=== PATIENT | male | born 1980 | race Caucasian/White ===

== ENCOUNTER 2016-12-04 10:44 | Inpatient (IN) | payer BC, OTHER ==
[2016-12-04 11:02] VITALS: BMI 24.0
--- NOTE | 2016-12-04 11:26 | HP ---
COWS - Scale Resting Pulse: 1= [place] 81-100 Sweatin= Chills/Flushing Restless Observation: 1= Difficult to Sit Still Pupil Size: 0= Normal to Room Light Bone or Joint Aches: 1= Mild Discomfort Runny Nose/ Eye Tearin= Runny Nose/Eyes GI Upset > 30mins: 1= Stomach Cramp Tremor Observation: 1= Tremor [place], Not Seen Yawning Observation: 1= 1-2x During Session Anxiety or Irritability: 1=Feels Anxious/Irritable Goose Flesh Skin: 0=Smooth Skin COWS Score: 10 Admission ROS BHS - HPI Chief Complaint: I want to stop using, it is destroying my life Allergies/Adverse Reactions: Allergies Allergy/AdvReac Type Severity Reaction Status Date / Time No Known Allergies Allergy Verified 12/04/16 11:15 History of Present Illness: 36 yo gentleman here for detox from opiates. Previously here for detox 03/01/16 - went to outpatient but relapsed about six months ago. Denies drug related seizures. Exam Limitations: Clinical Condition - Ebola screening Have you traveled outside of the country in the last 21 days: No Have you had contact with anyone from an Ebola affected area: No Have you been sick,other than usual withdrawal symptoms: No Do you have a fever: No - Review of Systems Constitutional: Chills, Loss of Appetite, Malaise, Changes in sleep, Unintentional Wgt. Loss EENT: reports: Blurred Vision, Nose Congestion Respiratory: reports: SOB with Exertion Cardiac: reports: Chest Tightness GI: reports: Poor Appetite : reports: No Symptoms Reported Musculoskeletal: reports: Back Pain, Muscle Pain Integumentary: reports: No Symptoms Reported Neuro: reports: Headache Endocrine: reports: No Symptoms Reported Hematology: reports: No Symptoms Reported Psychiatric: reports: Judgement Intact, Mood/Affect Appropiate, Orientated x3, Anxious Other Systems: Reviewed and Negative Patient History - Patient Medical History Hx Anemia: No Hx Asthma: Yes (ON INH) Hx Chronic Obstructive Pulmonary Disease (COPD): No Hx Cancer: No Hx Cardiac Disorders: No Hx Congestive Heart Failure: No Hx Hypertension: No Hx Hypercholesterolemia: No Hx Pacemaker: No HX Cerebrovascular Accident: No Hx Seizures: No Hx Dementia: No Hx Diabetes: No Hx Gastrointestinal Disorders: No Hx Liver Disease: No Hx Genitourinary Disorders: No Hx Sexually Transmitted Disorders: Yes (HERPES DX 2016) Hx Renal Disease (ESRD): No Hx Thyroid Disease: No Hx Human Immunodeficiency Virus (HIV): No Hx Hepatitis C: No Hx Depression: No Hx Suicide Attempt: No Hx Bipolar Disorder: No Hx Schizophrenia: No Other Medical History: pulmonary sarcoidosis - Patient Surgical History Past Surgical History: Yes Hx Neurologic Surgery: No Hx Cataract Extraction: No Hx Cardiac Surgery: No Hx Lung Surgery: No Hx Breast Surgery: No Hx Breast Biopsy: No Hx Abdominal Surgery: Yes (HERNIA REPAIR) Hx Appendectomy: No Hx Cholecystectomy: No Hx Genitourinary Surgery: No Hx Section: No Hx Orthopedic Surgery: Yes (R HAND, R KNEE) Hx Hysterectomy: No Anesthesia Reaction: No - PPD History Previous Implant?: Yes Documented Results: Negative w/proof Date: 03/03/16 PPD to be Administered?: No - Reproductive History Patient is a Female of Child Bearing Age (11 -55 yrs old): No (male) - Smoking Cessation Smoking history: Current every day smoker Have you smoked in the past 12 months: Yes Aproximately how many cigarettes per day: 20 Cigars Per Day: 0 Hx Chewing Tobacco Use: No Initiated information on smoking cessation: Yes 'Breaking Loose' booklet given: 12/04/16 (given on admission) - Substance & Tx. History Hx Alcohol Use: No Hx Substance Use: Yes Substance Use Type: Heroin Hx Substance Use Treatment: Yes (detox) - Substances Abused Heroin Route: Inhalation Frequency: Daily Amount used: 4-10 bags Age of first use: 35 Date of Last Use: 12/04/16 Family Disease History - Family Disease History Family Disease History: Diabetes: Grandparent (GRANDFATHER), Heart Disease: Mother (HTN, GOUT, KIDNEY), Other: Father (VERTIGO), Mother, Sister (ETOH ABUSE) Admission Physical Exam BHS - Vital Signs Vital Signs: Vital Signs - 24 hr 12/04/16 11:00 Temperature 97.3 F L Pulse Rate 86 Respiratory 20 Rate Blood Pressure 126/70 - Physical General Appearance: Yes: Nourished, Appropriately Dressed, Mild Distress, Anxious HEENTM: Yes: Hearing grossly Normal, Normal ENT Inspection, Normocephalic, Normal Voice, Pharynx Normal Respiratory: Yes: No Respiratory Distress, Rhonchi Neck: Yes: No masses,lesions,Nodules, Supple Breast: Yes: Breast Exam Deferred Cardiology: Yes: Regular Rhythm, Regular Rate Abdominal: Yes: Soft Genitourinary: Yes: Frequency Back: Yes: Normal Inspection Musculoskeletal: Yes: full range of Motion, Gait Steady, Muscle Pain Extremities: Yes: Normal Inspection, Normal Range of Motion, Non-Tender Neurological: Yes: Fully Oriented, Alert, Motor Strength 5/5, Normal Mood/Affect , Normal Response Integumentary: Yes: Normal Color, Warm Lymphatic: Yes: Within Normal Limits - Diagnostic (1) Opioid dependence with withdrawal Current Visit: Yes Status: Chronic (2) Asthma Current Visit: Yes Status: Chronic Qualifiers: Asthma severity: mild intermittent Asthma complication type: uncomplicated Qualified Code(s): J45.20 - Mild intermittent asthma, uncomplicated (3) Nicotine dependence Current Visit: Yes Status: Chronic Qualifiers: Nicotine product type: cigarettes Substance use status: uncomplicated Qualified Code(s): F17.210 - Nicotine dependence, cigarettes, uncomplicated (4) Sarcoidosis of lung Current Visit: Yes Status: Chronic Cleared for Admission [facility] - Detox or Rehab [facility] Level of Care: Medically Managed Detox Regimen/Protocol: Methadone [facility] Breath Alcohol Content Breath Alcohol Content: 0 Urine Drug Screen - Results Drug Screen Negative: No Urine Drug Screen Results: OPI-Opiates, OXY-Oxycodone
[2016-12-04] MEDS ORDERED: MAG HYDROX/AL HYDROX/SIMETH 30 ML UNIT-DOSE CUP PO PRN (11:45)
[2016-12-04] MEDS ORDERED: MAGNESIUM CITRATE 300 ML BOTTLE PO PRN (11:45)
[2016-12-04] MEDS ORDERED: ACETAMINOPHEN 325 MG TABLET (FP) PO PRN (11:45)
[2016-12-04] MEDS ORDERED: LOPERAMIDE HCL 2 MG CAPSULE PO PRN (11:45)
[2016-12-04] MEDS ORDERED: P-EPHED 60MG/TRIPROLIDI 2.5MG TABLET PO PRN (11:45)
[2016-12-04] MEDS ORDERED: MAGNESIUM HYDROX 2400MG/30ML ORAL SUSPENSION 30 ML CUP PO PRN (11:45)
[2016-12-04] MEDS ORDERED: MENTHOL/PHENOL 1 EACH UD MM PRN (11:45)
[2016-12-04] MEDS ORDERED: hydrOXYzine PAMOATE 50 MG CAPSULE (FP) PO PRN (11:45)
[2016-12-04] MEDS ORDERED: IBUPROFEN 400 MG TABLET (FP) PO PRN (11:45)
[2016-12-04] MEDS ORDERED: METHADONE HCL 10 MG TABLET (FOR DETOX USE ONLY) PO ONE ×2 (11:45→23:00)
[2016-12-04] MEDS ORDERED: guaiFENesin/D-METHORPHAN HB 10 ML UNIT-DOSE CUPS PO PRN (11:45)
[2016-12-04] MEDS ORDERED: ALBUTEROL SO4 6.7 GM HFA INHALER IH PRN (11:48)
[2016-12-04] MEDS: diazePAM 5 MG TABLET PO PRN (13:46)
[2016-12-04] MEDS: NICOTINE 14 MG/24 HOURS TOPICAL PATCH TD SCH (13:47)
[2016-12-04] MEDS: BUDESONIDE/FORMETEROL FUMARATE 160/4.5 mcg INHALER IH SCH ×2 (13:47→23:06)
[2016-12-04 18:59] LABS: URINE APPEARANCE CLEAR; URINE BILIRUBIN NEGATIVE (NEGATIVE); URINE BLOOD NEGATIVE (NEGATIVE); URINE COLOR YELLOW; URINE GLUCOSE (UA) NEGATIVE (NEGATIVE); URINE KETONE NEGATIVE (NEGATIVE); URINE LEUK ESTERASE NEGATIVE (NEGATIVE); URINE NITRITE NEGATIVE (NEGATIVE); URINE PROTEIN NEGATIVE (NEGATIVE); URINE UROBILINOGEN NEGATIVE E.U./dl (0.2-1.0)
[2016-12-04] MEDS: THIAMINE HCL 100 MG TABLET (FP) PO SCH (22:22)
[2016-12-04] MEDS: diphenhydrAMINE HCL 50 MG CAPSULE PO PRN (22:23)
[2016-12-05 09:49] LABS: MCH 29.5 pg (25.7-33.7); MCHC 33.5 g/dl (32.0-35.9); MEAN CELL VOLUME 88.1 fl (80-96); PLATELET COUNT 277 K/MM3 (134-434); RDW 13.4 % (11.9-15.9); WHITE BLOOD COUNT 6.8 K/mm3 (4.0-10.0)
[2016-12-05] MEDS ORDERED: PRENATAL VITAMINS W/ FOLIC ACID TABLET (FP) PO SCH (10:00)
[2016-12-05] MEDS ORDERED: METHADONE HCL 10 MG TABLET (FOR DETOX USE ONLY) PO ONE (10:00)
[2016-12-05] MEDS: NICOTINE 14 MG/24 HOURS TOPICAL PATCH TD SCH (10:12)
[2016-12-05] MEDS: BUDESONIDE/FORMETEROL FUMARATE 160/4.5 mcg INHALER IH SCH ×2 (10:12→22:08)
[2016-12-05 11:18] LABS: ALBUMIN 3.4 g/dl (3.4-5.0); ALK PHOS 70 U/L (45-117); ANION GAP 8 (8-16); BILIRUBIN,TOTAL 0.4 mg/dL (0.2-1.0); CALCIUM 8.8 mg/dL (8.5-10.1); CO2 25 mmol/L (21-32); CREATININE 0.6 mg/dL (0.7-1.3); GLUCOSE,RANDOM 89 mg/dL (74-106); SGOT/AST 8 U/L (15-37); SGPT/ALT 16 U/L (12-78); TOT PROT 6.9 g/dl (6.4-8.2)
--- NOTE | 2016-12-05 12:10 | PN ---
BHS COWS - Scale Resting Pulse: 0= [place] 80 or Below Sweatin=Flushed/Facial Moisture Restless Observation: 3= Extraneous Movement Pupil Size: 2= Moderately Dilated Bone or Joint Aches: 2= Severe Diffuse Aches Runny Nose/ Eye Tearin= Nasal Congestion GI Upset > 30mins: 1= Stomach Cramp Tremor Observation of Outstretched Hands: 2= Slight Tremor Visible Yawning Observation: 0= None Anxiety or Irritability: 2=Irritable/Anxious Goose Flesh Skin: 0=Smooth Skin COWS Score: 15 BHS Progress Note (SOAP) Subjective: Tremor, anxious, restless, sweating Objective: 12/05/16 12:09 Last Vital Signs Temp Pulse Resp BP Pulse Ox 95.9 F L 80 20 147/83 12/05/16 11:25 12/05/16 11:25 12/05/16 11:25 12/05/16 11:25 Laboratory Tests 12/04/16 12/05/16 12/05/16 17:00 07:45 07:45 WBC 6.8 D RBC 5.47 Hgb 16.2 D Hct 48.2 MCV 88.1 MCHC 33.5 RDW 13.4 Plt Count 277 MPV 8.0 Sodium 139 Potassium 4.5 Chloride 106 Carbon Dioxide 25 Anion Gap 8 BUN 10 D Creatinine 0.6 L Creat Clearance w eGFR > 60 Random Glucose 89 Calcium 8.8 Total Bilirubin 0.4 D AST 8 L ALT 16 Alkaline Phosphatase 70 Total Protein 6.9 Albumin 3.4 Urine Color Yellow Urine Appearance Clear Urine pH 5.0 Ur Specific [place] 1.023 Urine Protein Negative Urine Glucose (UA) Negative Urine Ketones Negative Urine Blood Negative Urine Nitrite Negative Urine Bilirubin Negative Urine Urobilinogen Negative Ur Leukocyte Esterase Negative Labs noted Assessment: 12/05/16 12:10 Withdrawal symptoms Plan: Continue detox
[2016-12-05] MEDS: diazePAM 5 MG TABLET PO PRN (22:08)
[2016-12-05] MEDS: THIAMINE HCL 100 MG TABLET (FP) PO SCH (22:08)
[2016-12-05] MEDS: diphenhydrAMINE HCL 50 MG CAPSULE PO PRN (22:08)
--- NOTE | 2016-12-05 23:35 | EKG ---
Test Reason : Blood Pressure : / mmHG Vent. Rate : 077 BPM Atrial Rate : 077 BPM P-R Int : 150 ms QRS Dur : 090 ms QT Int : 376 ms P-R-T Axes : 063 055 046 degrees QTc Int : 425 ms NORMAL SINUS RHYTHM NORMAL ECG NO PREVIOUS ECGS AVAILABLE Confirmed by JANINE MCQUEEN MD ([id number]) on 12/05/2016 11:34:51 PM Referred By: Confirmed By:JANINE MCQUEEN MD
[2016-12-06] MEDS: diazePAM 5 MG TABLET PO PRN (05:29)
--- NOTE | 2016-12-06 09:16 | PN ---
[facility] Progress Note Note: Patient insists on signing out AMA, advised of risks of not completing detox, refusing to stay, nursing notified patient will sign out AMA.
[2016-12-06 09:17] VITALS: BP 119/80; PULSE 69; TEMP 97
--- NOTE | 2016-12-06 09:18 | DS ---
[facility] Detox Discharge Summary Admission Date: 12/04/16 Discharge Date: 12/06/16 - History Present History: Opioid Dependence Pertinent Past History: nicotine dependence, asthma, anxiety, depression, insomnia, sarcoidosis - Physical Exam Results Vital Signs: Vital Signs Temperature 98.0 F 12/06/16 06:08 Pulse Rate 54 L 12/06/16 06:08 Respiratory Rate 18 12/06/16 06:08 Blood Pressure 138/83 12/06/16 06:08 O2 Sat by Pulse Oximetry (%) Pertinent Admission Physical Exam Findings: withdrawal sx - Treatment Hospital Course: Detox Protocol Followed Patient has Accepted a Rehab Referral to: no - Medication Discharge Medications: Ambulatory Orders Albuterol Sulfate Inhaler - [Ventolin HFA Inhaler -] 2 inh PO Q4H PRN 03/01/16 Budesonide/Formeterol Fumarate [SYMBICORT 160/4.5mcg -] 2 inh PO BID 12/04/16 - Diagnosis (1) Asthma Current Visit: Yes Status: Chronic Qualifiers: Asthma severity: mild intermittent Asthma complication type: uncomplicated Qualified Code(s): J45.20 - Mild intermittent asthma, uncomplicated (2) Nicotine dependence Current Visit: Yes Status: Chronic Qualifiers: Nicotine product type: cigarettes Substance use status: uncomplicated Qualified Code(s): F17.210 - Nicotine dependence, cigarettes, uncomplicated (3) Opioid dependence with withdrawal Current Visit: Yes Status: Chronic (4) Sarcoidosis of lung Current Visit: Yes Status: Chronic - AMA Did Patient Leave Against Medical Advice: Yes
[2016-12-06] MEDS ORDERED: METHADONE HCL 5 MG TABLET (FOR DETOX USE ONLY) PO ONE (10:00)
[2016-12-07] MEDS ORDERED: METHADONE HCL 5 MG TABLET (FOR DETOX USE ONLY) PO ONE (10:00)
[2016-12-08] MEDS ORDERED: METHADONE HCL 10 MG TABLET (FOR DETOX USE ONLY) PO ONE (10:00)
[2016-12-09] MEDS ORDERED: METHADONE HCL 5 MG TABLET (FOR DETOX USE ONLY) PO ONE (06:00)
== END 2016-12-06 08:55 | disposition left against medical advice (07) | DRG 894 ==
LOC: YASAS 10:44 → Y3N 11:47
PROVIDERS: ADMIT Internal Medicine; ATTEND Internal Medicine
PROC: HZ2ZZZZ Detoxification Services for Substance Abuse Treatment (ICD-10-PCS; principal; 2016-12-04)
DX: F11.23 Opioid dependence with withdrawal (principal); F17.210 Nicotine dependence, cigarettes, uncomplicated; J45.20 Mild intermittent asthma, uncomplicated; Z87.438 Personal history of other diseases of male genital organs; Z87.09 Personal history of other diseases of the respiratory system
CPT/HCPCS: 36415; 80053; 81003; 85027; 86593; 86803; 93005; 93010

== ENCOUNTER 2017-04-12 15:42 | Inpatient (IN) | payer BC ==
[2017-04-12 18:29] VITALS: BMI 25.9
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
[2017-04-12] MEDS ORDERED: MAGNESIUM HYDROX 2400MG/30ML ORAL SUSPENSION 30 ML CUP PO PRN (20:53)
[2017-04-12] MEDS ORDERED: MAGNESIUM CITRATE 300 ML BOTTLE PO PRN (20:53)
[2017-04-12] MEDS ORDERED: NICOTINE POLACRILEX 2 MG GUM BC PRN (20:53)
[2017-04-12] MEDS ORDERED: MAG HYDROX/AL HYDROX/SIMETH 30 ML UNIT-DOSE CUP PO PRN (20:53)
[2017-04-12] MEDS ORDERED: IBUPROFEN 400 MG TABLET (FP) PO PRN (20:53)
[2017-04-12] MEDS ORDERED: LOPERAMIDE HCL 2 MG CAPSULE PO PRN (20:53)
[2017-04-12] MEDS ORDERED: MENTHOL/PHENOL 1 EACH UD MM PRN (20:53)
[2017-04-12] MEDS ORDERED: METHADONE HCL 10 MG TABLET (FOR DETOX USE ONLY) PO ONE ×2 (20:53→23:00)
[2017-04-12] MEDS ORDERED: ACETAMINOPHEN 325 MG TABLET (FP) PO PRN (20:53)
[2017-04-12] MEDS ORDERED: P-EPHED 60MG/TRIPROLIDI 2.5MG TABLET PO PRN (20:53)
[2017-04-12] MEDS ORDERED: guaiFENesin/D-METHORPHAN HB 10 ML UNIT-DOSE CUPS PO PRN (20:53)
[2017-04-12] MEDS: THIAMINE HCL 100 MG TABLET (FP) PO SCH (22:37)
[2017-04-12] MEDS: diazePAM 5 MG TABLET PO PRN (22:37)
[2017-04-12] MEDS: diphenhydrAMINE HCL 50 MG CAPSULE PO PRN (22:38)
[2017-04-12] MEDS: NICOTINE 21 MG/24 HOURS TOPICAL PATCH TD SCH (22:42)
[2017-04-12] MEDS: ALBUTEROL SO4 6.7 GM HFA INHALER IH PRN (23:06)
[2017-04-12 23:14] LABS: URINE APPEARANCE CLEAR; URINE BILIRUBIN NEGATIVE (NEGATIVE); URINE BLOOD NEGATIVE (NEGATIVE); URINE COLOR LTYELLOW; URINE GLUCOSE (UA) NEGATIVE (NEGATIVE); URINE KETONE NEGATIVE (NEGATIVE); URINE LEUK ESTERASE NEGATIVE (NEGATIVE); URINE NITRITE NEGATIVE (NEGATIVE); URINE PROTEIN NEGATIVE (NEGATIVE); URINE UROBILINOGEN NEGATIVE E.U./dl (0.2-1.0)
[2017-04-13] MEDS: diazePAM 5 MG TABLET PO PRN ×3 (05:29→22:36)
[2017-04-13] MEDS: ALBUTEROL SO4 6.7 GM HFA INHALER IH PRN (08:21)
[2017-04-13] MEDS ORDERED: ALBUTEROL SO4 2.5/IPRATROPIUM 0.5 INH SOL 3 ML VIAL.NEB. NEB PRN (09:22)
[2017-04-13] MEDS: ALBUTEROL SO4 2.5/IPRATROPIUM 0.5 INH SOL 3 ML VIAL.NEB. NEB SCH ×4 (09:34→22:34)
[2017-04-13] MEDS: PRENATAL VITAMINS W/ FOLIC ACID TABLET (FP) PO SCH (09:38)
[2017-04-13] MEDS: NICOTINE 21 MG/24 HOURS TOPICAL PATCH TD SCH (09:40)
[2017-04-13] MEDS ORDERED: METHADONE HCL 10 MG TABLET (FOR DETOX USE ONLY) PO ONE (10:00)
[2017-04-13] MEDS: BUDESONIDE/FORMETEROL FUMARATE 160/4.5 mcg INHALER IH SCH ×2 (10:06→22:59)
[2017-04-13 10:22] LABS: MCH 30.9 pg (25.7-33.7); MCHC 33.9 g/dl (32.0-35.9); PLATELET COUNT 251 K/MM3 (134-434); RDW 13.5 % (11.9-15.9)
[2017-04-13 10:26] LABS: ALBUMIN 3.5 g/dl (3.4-5.0); ALK PHOS 65 U/L (45-117); ANION GAP 6 (8-16); BILIRUBIN,TOTAL 0.3 mg/dL (0.2-1.0); CALCIUM 8.6 mg/dL (8.5-10.1); CO2 30 mmol/L (21-32); COCKROFT - GAULT 152.33; CREATININE 0.8 mg/dL (0.7-1.3); GLUCOSE,RANDOM 78 mg/dL (74-106); SGOT/AST 13 U/L (15-37); SGPT/ALT 20 U/L (12-78); TOT PROT 6.5 g/dl (6.4-8.2)
--- NOTE | 2017-04-13 11:41 | PN ---
BHS COWS - Scale Resting Pulse: 1= [place] 81-100 Sweatin= Chills/Flushing Restless Observation: 3= Extraneous Movement Pupil Size: 2= Moderately Dilated Bone or Joint Aches: 4=Acute Joint/Muscle Pain Runny Nose/ Eye Tearin= Nasal Congestion GI Upset > 30mins: 1= Stomach Cramp Tremor Observation of Outstretched Hands: 1= Tremor [place], Not Seen Yawning Observation: 1= 1-2x During Session Anxiety or Irritability: 2=Irritable/Anxious Goose Flesh Skin: 0=Smooth Skin COWS Score: 17 BHS Progress Note (SOAP) Subjective: ANXIETY,IRRITABILITY, SWEATS. C/O SOB 12 TO 8 SHIFT BUT DENIES NOW. NAD. Objective: 04/13/17 11:38 Vital Signs Temperature 96.5 F L 04/13/17 09:31 Pulse Rate 90 04/13/17 09:31 Respiratory Rate 20 04/13/17 09:31 Blood Pressure 121/87 04/13/17 09:31 O2 Sat by Pulse Oximetry (%) Laboratory Last Values WBC 8.0 K/mm3 (4.0-10.0) 04/13/17 07:00 RBC 5.07 M/mm3 (4.00-5.60) 04/13/17 07:00 Hgb 15.6 GM/dL (11.7-16.9) 04/13/17 07:00 Hct 46.1 % (35.4-49) 04/13/17 07:00 MCV 91.0 fl (80-96) 04/13/17 07:00 MCHC 33.9 g/dl (32.0-35.9) 04/13/17 07:00 RDW 13.5 % (11.9-15.9) 04/13/17 07:00 Plt Count 251 K/MM3 (134-434) 04/13/17 07:00 MPV 8.0 fl (7.5-11.1) 04/13/17 07:00 Sodium 139 mmol/L (136-145) 04/13/17 07:00 Potassium 4.3 mmol/L (3.5-5.1) 04/13/17 07:00 Chloride 103 mmol/L (98-107) 04/13/17 07:00 Carbon Dioxide 30 mmol/L (21-32) 04/13/17 07:00 Anion Gap 6 (8-16) L 04/13/17 07:00 BUN 11 mg/dL (7-18) 04/13/17 07:00 Creatinine 0.8 mg/dL (0.7-1.3) D 04/13/17 07:00 Creat Clearance w eGFR > 60 (>60) 04/13/17 07:00 Random Glucose 78 mg/dL (74-106) 04/13/17 07:00 Calcium 8.6 mg/dL (8.5-10.1) 04/13/17 07:00 Total Bilirubin 0.3 mg/dL (0.2-1.0) D 04/13/17 07:00 AST 13 U/L (15-37) L D 04/13/17 07:00 ALT 20 U/L (12-78) D 04/13/17 07:00 Alkaline Phosphatase 65 U/L (45-117) 04/13/17 07:00 Total Protein 6.5 g/dl (6.4-8.2) 04/13/17 07:00 Albumin 3.5 g/dl (3.4-5.0) 04/13/17 07:00 Urine Color Ltyellow 04/12/17 22:11 Urine Appearance Clear 04/12/17 22:11 Urine pH 5.0 (5.0-8.0) 04/12/17 22:11 Urine Protein Negative (NEGATIVE) 04/12/17 22:11 Urine Glucose (UA) Negative (NEGATIVE) 04/12/17 22:11 Urine Ketones Negative (NEGATIVE) 04/12/17 22:11 Urine Blood Negative (NEGATIVE) 04/12/17 22:11 Urine Nitrite Negative (NEGATIVE) 04/12/17 22:11 Urine Bilirubin Negative (NEGATIVE) 04/12/17 22:11 Urine Urobilinogen Negative E.U./dl (0.2-1.0) 04/12/17 22:11 Ur Leukocyte Esterase Negative (NEGATIVE) 04/12/17 22:11 LUNGS:BILATERAL MODERATE WHEEZE WITH SCATTERED RHONCHI. PULSE OX; 96 TO 98% Assessment: 04/13/17 11:40 WITHDRAWAL SX Plan: CONTINUE DETOX NEBULIZER TX DIRECTED.
--- NOTE | 2017-04-13 11:57 | EKG ---
Test Reason : Blood Pressure : / mmHG Vent. Rate : 074 BPM Atrial Rate : 074 BPM P-R Int : 168 ms QRS Dur : 090 ms QT Int : 374 ms P-R-T Axes : 075 072 066 degrees QTc Int : 415 ms NORMAL SINUS RHYTHM WITH SINUS ARRHYTHMIA NORMAL ECG WHEN COMPARED WITH ECG OF 04-DEC-2016 13:51, NO SIGNIFICANT CHANGE WAS FOUND Confirmed by SHERIF ROWLAND, ZHEN ([id number]) on 04/13/2017 11:57:08 AM Referred By: Nilay Garcia Confirmed By:ZHEN GORMAN MD
--- NOTE | 2017-04-13 13:00 | CONSULT ---
[facility] Psychiatric Consult - Data Date of interview: 04/13/17 Admission source: [facility] Identifying data: Readmission to [facility] for this 37 y/o male seeking detox treatment for heroin dependence.Patient is single without children ,domiciled (lives with mother),unemployed and supported by relatives. Substance Abuse History: - Smoking Cessation. Smoking history: Current every day smoker. Have you smoked in the past 12 months: Yes. Aproximately how many cigarettes per day: 20. Cigars Per Day: 0. Hx Chewing Tobacco Use: No. Initiated information on smoking cessation: Yes. 'Breaking Loose' booklet given : 04/12/17. - Substance & Tx. History. Hx Alcohol Use: No. Hx Substance Use: Yes. Substance Use Type: Heroin. Hx Substance Use Treatment: Yes ([facility]). - Substances Abused. HEROIN. Route: Inhalation. Frequency: 3-6 times per week. Amount used: 4 BAGS. Age of first use: 35. Date of Last Use: 04/12/17 ( EARLY AM). Confirmed by patient. Medical History: Glaucoma (left eye),bronchial asthma,sarcoidosis (on INH), herpes and a history of herniorraphy. Psychiatric History: Patient denies history of psychiatric illness (no report of past medication,hospitalizations or OPD care).Mr Estrella denies history of suicide attempts. Physical/Sexual Abuse/Trauma History: Patient denies. Additional Comment: Urine Drug Screen Results: OPI-Opiates.Noted. Mental Status Exam - Mental Status Exam Alert and Oriented to: Time, Place, Person Cognitive Function: Good Patient Appearance: Well Groomed Mood: Withdrawn Affect: Appropriate, Normal Range Patient Behavior: Fatigued, Appropriate, Cooperative Speech Pattern: Clear (bilingual) Voice Loudness: Normal Thought Process: Goal Oriented Thought Disorder: Not Present Hallucinations: Denies Suicidal Ideation: Denies Homicidal Ideation: Denies Insight/Judgement: Poor Sleep: Fair Appetite: Good Muscle strength/Tone: Normal Gait/Station: Normal Psychiatric Findings - Problem List ([place] 1, 2,3) (1) Opioid dependence with withdrawal Current Visit: Yes Status: Acute (2) Nicotine dependence Current Visit: Yes Status: Chronic Qualifiers: Nicotine product type: cigarettes Substance use status: uncomplicated Qualified Code(s): F17.210 - Nicotine dependence, cigarettes, uncomplicated (3) Asthma Current Visit: Yes Status: Chronic Qualifiers: Asthma severity: mild intermittent Asthma complication type: uncomplicated Qualified Code(s): J45.20 - Mild intermittent asthma, uncomplicated (4) Sarcoidosis of lung Current Visit: Yes Status: Chronic - Initial Treatment Plan Initial Treatment Plan: Psychoeducation.Detoxification.Observation.
[2017-04-13] MEDS: diphenhydrAMINE HCL 50 MG CAPSULE PO PRN (22:36)
[2017-04-13] MEDS: THIAMINE HCL 100 MG TABLET (FP) PO SCH (22:58)
[2017-04-14] MEDS: diazePAM 5 MG TABLET PO PRN ×2 (04:19→10:27)
[2017-04-14 09:27] VITALS: TEMP 97
[2017-04-14] MEDS ORDERED: METHADONE HCL 5 MG TABLET (FOR DETOX USE ONLY) PO ONE (10:00)
[2017-04-14] MEDS: ALBUTEROL SO4 2.5/IPRATROPIUM 0.5 INH SOL 3 ML VIAL.NEB. NEB SCH ×2 (10:25→15:31)
[2017-04-14] MEDS: BUDESONIDE/FORMETEROL FUMARATE 160/4.5 mcg INHALER IH SCH (10:25)
[2017-04-14] MEDS: PRENATAL VITAMINS W/ FOLIC ACID TABLET (FP) PO SCH (10:25)
[2017-04-14] MEDS: NICOTINE 21 MG/24 HOURS TOPICAL PATCH TD SCH (10:26)
--- NOTE | 2017-04-14 10:46 | PN ---
BHS COWS - Scale Resting Pulse: 1= [place] 81-100 Sweatin= Chills/Flushing Restless Observation: 3= Extraneous Movement Pupil Size: 2= Moderately Dilated Bone or Joint Aches: 4=Acute Joint/Muscle Pain Runny Nose/ Eye Tearin= Nasal Congestion GI Upset > 30mins: 1= Stomach Cramp Tremor Observation of Outstretched Hands: 1= Tremor [place], Not Seen Yawning Observation: 1= 1-2x During Session Anxiety or Irritability: 2=Irritable/Anxious Goose Flesh Skin: 0=Smooth Skin COWS Score: 17 BHS Progress Note (SOAP) Subjective: DECREASED ANXIETY,MUSCLE ACHES SWEATS,NAUSEA. Objective: 04/14/17 10:45 Vital Signs Temperature 97.0 F L 04/14/17 09:26 Pulse Rate 90 04/14/17 09:26 Respiratory Rate 20 04/14/17 09:26 Blood Pressure 119/85 04/14/17 09:26 O2 Sat by Pulse Oximetry (%) Assessment: 04/14/17 10:45 WITHDRAWAL SX Plan: CONTINUE DETOX
[2017-04-14 13:35] VITALS: BP 126/86; PULSE 95
--- NOTE | 2017-04-14 23:33 | DS ---
[facility] Detox Discharge Summary Admission Date: 04/12/17 Discharge Date: 04/14/17 - History Present History: Opioid Dependence Pertinent Past History: asthma - Physical Exam Results Vital Signs: Vital Signs Temperature 97.0 F L 04/14/17 13:34 Pulse Rate 95 H 04/14/17 13:34 Respiratory Rate 20 04/14/17 13:34 Blood Pressure 126/86 04/14/17 13:34 O2 Sat by Pulse Oximetry (%) Pertinent Admission Physical Exam Findings: withdrawal sx Laboratory Last Values WBC 8.0 K/mm3 (4.0-10.0) 04/13/17 07:00 RBC 5.07 M/mm3 (4.00-5.60) 04/13/17 07:00 Hgb 15.6 GM/dL (11.7-16.9) 04/13/17 07:00 Hct 46.1 % (35.4-49) 04/13/17 07:00 MCV 91.0 fl (80-96) 04/13/17 07:00 MCHC 33.9 g/dl (32.0-35.9) 04/13/17 07:00 RDW 13.5 % (11.9-15.9) 04/13/17 07:00 Plt Count 251 K/MM3 (134-434) 04/13/17 07:00 MPV 8.0 fl (7.5-11.1) 04/13/17 07:00 Sodium 139 mmol/L (136-145) 04/13/17 07:00 Potassium 4.3 mmol/L (3.5-5.1) 04/13/17 07:00 Chloride 103 mmol/L (98-107) 04/13/17 07:00 Carbon Dioxide 30 mmol/L (21-32) 04/13/17 07:00 Anion Gap 6 (8-16) L 04/13/17 07:00 BUN 11 mg/dL (7-18) 04/13/17 07:00 Creatinine 0.8 mg/dL (0.7-1.3) D 04/13/17 07:00 Creat Clearance w eGFR > 60 (>60) 04/13/17 07:00 Random Glucose 78 mg/dL (74-106) 04/13/17 07:00 Calcium 8.6 mg/dL (8.5-10.1) 04/13/17 07:00 Total Bilirubin 0.3 mg/dL (0.2-1.0) D 04/13/17 07:00 AST 13 U/L (15-37) L D 04/13/17 07:00 ALT 20 U/L (12-78) D 04/13/17 07:00 Alkaline Phosphatase 65 U/L (45-117) 04/13/17 07:00 Total Protein 6.5 g/dl (6.4-8.2) 04/13/17 07:00 Albumin 3.5 g/dl (3.4-5.0) 04/13/17 07:00 Urine Color Ltyellow 04/12/17 22:11 Urine Appearance Clear 04/12/17 22:11 Urine pH 5.0 (5.0-8.0) 04/12/17 22:11 Ur Specific [place] 1.020 (1.005-1.025) 04/12/17 22:11 Urine Protein Negative (NEGATIVE) 04/12/17 22:11 Urine Glucose (UA) Negative (NEGATIVE) 04/12/17 22:11 Urine Ketones Negative (NEGATIVE) 04/12/17 22:11 Urine Blood Negative (NEGATIVE) 04/12/17 22:11 Urine Nitrite Negative (NEGATIVE) 04/12/17 22:11 Urine Bilirubin Negative (NEGATIVE) 04/12/17 22:11 Urine Urobilinogen Negative E.U./dl (0.2-1.0) 04/12/17 22:11 Ur Leukocyte Esterase Negative (NEGATIVE) 04/12/17 22:11 RPR Titer Nonreactive (NONREACTIVE) 04/13/17 07:00 Hepatitis C Antibody <0.1 s/co ratio (0.0-0.9) 04/12/17 07:00 lab noted - Treatment Hospital Course: Detox Protocol Followed, Responded well - Medication Discharge Medications: Ambulatory Orders Albuterol Sulfate Inhaler - [Ventolin HFA Inhaler -] 2 inh PO Q4H PRN 03/01/16 Budesonide/Formeterol Fumarate [SYMBICORT 160/4.5mcg -] 2 inh PO BID 12/04/16 - Diagnosis (1) Opioid dependence with withdrawal Status: Acute (2) Asthma Status: Chronic Qualifiers: Asthma severity: mild intermittent Asthma complication type: uncomplicated Qualified Code(s): J45.20 - Mild intermittent asthma, uncomplicated - AMA Did Patient Leave Against Medical Advice: Yes
[2017-04-15] MEDS ORDERED: METHADONE HCL 10 MG TABLET (FOR DETOX USE ONLY) PO ONE (10:00)
[2017-04-15] MEDS ORDERED: METHADONE HCL 5 MG TABLET (FOR DETOX USE ONLY) PO ONE (10:00)
[2017-04-16] MEDS ORDERED: METHADONE HCL 5 MG TABLET (FOR DETOX USE ONLY) PO ONE (06:00)
[2017-04-16] MEDS ORDERED: METHADONE HCL 10 MG TABLET (FOR DETOX USE ONLY) PO ONE (10:00)
[2017-04-17] MEDS ORDERED: METHADONE HCL 5 MG TABLET (FOR DETOX USE ONLY) PO ONE (06:00)
== END 2017-04-14 16:48 | disposition left against medical advice (07) | DRG 770 ==
LOC: YASAS 15:42 → Y3N 21:30
PROVIDERS: ADMIT Internal Medicine; ATTEND Internal Medicine
PROC: HZ2ZZZZ Detoxification Services for Substance Abuse Treatment (ICD-10-PCS; principal; 2017-04-14)
DX: F11.23 Opioid dependence with withdrawal (principal); F17.210 Nicotine dependence, cigarettes, uncomplicated; J45.20 Mild intermittent asthma, uncomplicated; D86.0 Sarcoidosis of lung; Z87.438 Personal history of other diseases of male genital organs
CPT/HCPCS: 36415; 80053; 81003; 85027; 86593; 86803; 93005; 93010; 94640